=== PATIENT | male | born 1940 | race Caucasian/White ===

== ENCOUNTER 2023-04-28 21:47 | Emergency (ER) | payer BC, MEDICARE ==
[~2023-04-28] VITALS: Ht 177.8 cm; Wt 84.6 kg
[2023-04-28 23:10] LABS: BASO % 0.3 % (0.0-1.0); EOS # 0.3 10^3/uL (0.0-0.5); EOS % 2.8 % (0.0-3.0); HEMATOCRIT 40.4 % (42.0-52.0); HEMOGLOBIN 13.5 g/dl (13.5-17.5); LYMPH # 1.1 10^3/uL (1.5-5.0); LYMPH % 11.7 % (24.0-44.0); MEAN CORPUSCULAR HEMOGLOBIN 29.8 pg (27.0-33.0); MEAN CORPUSCULAR HGB CONC 33.4 g/dl (32.0-36.5); MEAN CORPUSCULAR VOLUME 89.2 fl (80.0-96.0); MONO % 11.3 % (2.0-8.0); NEUTROPHILS # 6.7 10^3/uL (1.5-8.5); NEUTROPHILS % 73.5 % (36.0-66.0); PLATELET COUNT, AUTOMATED 170 10^3/uL (150-450); RED BLOOD COUNT 4.53 10^6/uL (4.30-6.10); WHITE BLOOD COUNT 9.2 10^3/uL (4.0-10.0)
[2023-04-28 23:34] LABS: CK-MB VALUE MASS 1.4 NG/ML (<3.6); LIPASE 26 U/L (12-53)
[2023-04-28 23:36] LABS: CPK CREATINE PHOSPHOKINASE 109 U/L (46-171); MB/CK RELATIVE INDEX 1.28 (< OR =4)
[2023-04-28 23:37] LABS: ALBUMIN 3.7 G/DL (3.2-5.2); ALKALINE PHOSPHATASE 72 U/L (46-116); ALT/SGPT 18 U/L (7.0-40); AST/SGOT 11 U/L (<34); BILIRUBIN,DIRECT 0.3 MG/DL (<0.4); BILIRUBIN,TOTAL 0.9 MG/DL (0.3-1.2); BLOOD UREA NITROGEN 18 MG/DL (9-23); CALCIUM LEVEL 8.9 MG/DL (8.3-10.6); CARBON DIOXIDE LEVEL 31 MMOL/L (20-31); CHLORIDE LEVEL 103 MMOL/L (98-107); CREATININE FOR GFR 0.93 MG/DL (0.70-1.30); GLOMERULAR FILTRATION RATE > 60.0 (>35); GLUCOSE, FASTING 106 MG/DL (74-106); SODIUM LEVEL 140 MMOL/L (136-145)
[2023-04-28] MEDS ORDERED: ISOVUE-370 76% 100ML VIAL As Ordered ONE (23:46)
[2023-04-29 00:06] LABS: TOTAL PROTEIN 6.3 G/DL (5.7-8.2)
[2023-04-29] MEDS ORDERED: HYOSCYAMINE SULFATE 0.125 MG SUBL TABLET SL ONE (00:45)
[2023-04-29 00:53] LABS: CK-MB VALUE MASS 1.3 NG/ML (<3.6)
[2023-04-29 00:54] LABS: MB/CK RELATIVE INDEX 1.15 (< OR =4)
[2023-04-29] MEDS ORDERED: NS 500 ML IV ONE (01:00)
[2023-04-29] MEDS ORDERED: KETOROLAC 30 MG/ML 1ML VIAL IV ONE (01:00)
[2023-04-29] MEDS ORDERED: LEVS0.124 SL (01:52)
[2023-04-29 01:59] VITALS: BP 153/81; TEMP 98.1; O2SAT 99
== END 2023-04-29 02:14 | disposition home or self-care (01) ==
LOC: M ED 21:47
DX: K22.4 Dyskinesia of esophagus (principal); I44.4 Left anterior fascicular block; Z79.899 Other long term (current) drug therapy
CPT/HCPCS: 70498; 71046; 71275; 80048; 80076; 82550; 82553; 83690; 84484; 85025; 87486; 87581; 87633; 87798; 87880; 93005; 96361; 96374; 99284; J1885; Q9967

== ENCOUNTER → 2023-04-28 | Outpatient (REF) | payer MEDICARE, BC ==
[~2023-04-28] MED LIST: LEVS0.124 SL
== END ==
LOC: M LAB REF 17:17
PROVIDERS: ATTEND Physician Assistant
DX: J02.9 Acute pharyngitis, unspecified (principal)